=== PATIENT | female | born 1960 | race American Indian/Alaskan Native ===

== ENCOUNTER 2017-10-11 03:26 | Emergency (ER) | payer MEDICARE, BC ==
[2017-10-11 03:26] VITALS: BMI 28.6
[2017-10-11] MEDS ORDERED: Sodium Chloride 0.9% 1,000 ML IV STA (03:51)
--- NOTE | 2017-10-11 03:58 | ED PDOC ---
Arrival/HPI - General Chief Complaint: Abdominal Pain Time Seen by Provider: 10/11/17 03:34 Historian: Patient - History of Present Illness Narrative History of Present Illness (Text): 10/11/17 03:55 Raquel Rosario is a 57 year old female, whose past medical history includes colitis, who presents to the emergency department complaining of abdominal pain. Patient states she has been experiencing intermittent diffuse abdominal cramping for the past 6 days with associated nausea, vomiting, and diarrhea. Patient also reports bloody diarrhea for the past few days. Patient states symptoms are consistent with previous episodes of colitis. Patient denies any fever, chills, chest pain, shortness of breath, urinary symptoms, back pain, neck pain, headache, dizziness, or any other complaints. Time/Duration: < week (6 days ) Symptom Onset: Gradual Symptom Course: Unchanged Activities at Onset: Light Context: Home Past Medical History - Provider Review Nursing Documentation Reviewed: Yes - Cardiac Hx Cardiac Disorders: No - Pulmonary Hx Respiratory Disorders: No - Neurological Hx Neurological Disorder: Yes Hx Meningitis: Yes (bacterial) - HEENT Hx HEENT Disorder: No - Renal Hx Renal Disorder: No - Endocrine/Metabolic Hx Endocrine Disorders: No - Hematological/Oncological Hx Blood Disorders: No - Integumentary Hx Dermatological Disorder: No - Musculoskeletal/Rheumatological Hx Musculoskeletal Disorders: No - Gastrointestinal Hx Gastrointestinal Disorders: Yes Hx Colitis: Yes - Genitourinary/Gynecological Hx Genitourinary Disorders: No - Psychiatric Hx Psychophysiologic Disorder: Yes Hx Bipolar Disorder: Yes Hx Substance Use: No - Surgical History Hx Cholecystectomy: Yes - Anesthesia Hx Anesthesia: No Family/Social History - Physician Review Nursing Documentation Reviewed: Yes Family/Social History: Unknown Family HX Smoking Status: Never Smoked Hx Alcohol Use: No Hx Substance Use: No Allergies/Home Meds Allergies/Adverse Reactions: Allergies Iodinated Contrast- Oral and IV Dye Allergy (Verified 10/11/17 03:51) SWELLING Review of Systems - Physician Review All systems were reviewed & negative as marked: Yes - Review of Systems Constitutional: Normal. absent: Fevers Eyes: Normal ENT: Normal Respiratory: Normal. absent: SOB, Cough Cardiovascular: Normal. absent: Chest Pain Gastrointestinal: Abdominal Pain, Diarrhea, Nausea, Vomiting Genitourinary Female: Normal. absent: Dysuria, Frequency, Hematuria, Urine Output Changes Musculoskeletal: Normal. absent: Back Pain, Neck Pain Skin: Normal. absent: Rash Neurological: Normal. absent: Headache, Dizziness Endocrine: Normal Hemo/Lymphatic: Normal Psychiatric: Normal Physical Exam Vital Signs Reviewed: Yes Vital Signs Temp Pulse Resp BP Pulse Ox 10/11/17 06:39 72 17 132/71 100 10/11/17 03:45 97.9 F 76 16 141/78 100 Temperature: Afebrile Blood Pressure: Normal Pulse: Regular Respiratory Rate: Normal Appearance: Positive for: Well-Appearing, Non-Toxic, Comfortable Pain Distress: None Mental Status: Positive for: Alert and Oriented X 3 - Systems Exam Head: Present: Atraumatic, Normocephalic Pupils: Present: PERRL Extroacular Muscles: Present: EOMI Conjunctiva: Present: Normal Mouth: Present: Moist Mucous Membranes Neck: Present: Normal Range of Motion Respiratory/Chest: Present: Clear to Auscultation, Good Air Exchange. No: Respiratory Distress, Accessory Muscle Use Cardiovascular: Present: Regular Rate and Rhythm, Normal S1, S2. No: Murmurs Abdomen: Present: Normal Bowel Sounds. No: Tenderness, Distention, Peritoneal Signs Back: Present: Normal Inspection. No: CVA Tenderness, Midline Tenderness, Paraspinal Tenderness Upper Extremity: Present: Normal Inspection. No: Cyanosis, Edema Lower Extremity: Present: Normal Inspection. No: Edema Neurological: Present: GCS=15, CN II-XII Intact, Speech Normal Skin: Present: Warm, Dry, Normal Color. No: Rashes Psychiatric: Present: Alert, Oriented x 3, Normal Insight, Normal Concentration Medical Decision Making ED Course and Treatment: 10/11/17 03:55 Impression: 57 year old female complaining of intermittent diffuse abdominal cramping, nausea, vomiting, and diarrhea x6 days. Plan: -- Labs, lipase -- IV fluids -- Protonix -- Reassess and disposition Progress Notes: - Lab Interpretations Lab Results: 10/11/17 04:06 10/11/17 04:06 Lab Results 10/11/17 04:06: WBC 6.0 D, RBC 4.76, Hgb 13.7, Hct 41.3, MCV 86.8, MCH 28.8, MCHC 33.2, RDW 13.4, Plt Count 361, MPV 8.8 10/11/17 04:06: Sodium 142, Potassium 3.7, Chloride 104, Carbon Dioxide 24, Anion Gap 18, BUN 14, Creatinine 0.8, Est GFR ( Amer) > 60, Est GFR (Non- Af Amer) > 60, Random Glucose 116 H, Calcium 9.1, Total Bilirubin 0.6, AST 35, ALT 29, Alkaline Phosphatase 87, Total Protein 7.6, Albumin 4.3, Globulin 3.3, Albumin/Globulin Ratio 1.3, Lipase 107 - RAD Interpretation Radiology Orders: 10/11/17 04:47 ABD & PELVIS W/O PO OR IV CONT [CT] Stat - Medication Orders Current Medication Orders: Discontinued Medications Ciprofloxacin (Cipro) 500 mg PO ONCE STA PRN Reason: Protocol Stop: 10/11/17 07:01 Sodium Chloride (Sodium Chloride 0.9%) 1,000 mls @ 999 mls/hr IV .Q1H1M STA Stop: 10/11/17 04:51 Last Admin: 10/11/17 04:11 Dose: 999 mls/hr eMAR Start Stop Document 10/11/17 04:11 IT (Rec: 10/11/17 04:11 IT [id number]) Intravenous Solution Start Date 10/11/17 Start Time 04:11 Metronidazole (Flagyl) 500 mg PO STAT STA PRN Reason: Protocol Stop: 10/11/17 07:01 Morphine Sulfate (Morphine) 2 mg IVP STAT STA Stop: 10/11/17 04:44 Last Admin: 10/11/17 05:09 Dose: 2 mg IVP Administration Document 10/11/17 05:09 IT (Rec: 10/11/17 05:09 IT [id number]) Charges for Administration # of IVP Administrations 1 Ondansetron HCl (Zofran Inj) 4 mg IVP ONCE ONE Stop: 10/11/17 04:44 Last Admin: 10/11/17 05:09 Dose: 4 mg IVP Administration Document 10/11/17 05:09 IT (Rec: 10/11/17 05:09 IT [id number]) Charges for Administration # of IVP Administrations 1 Pantoprazole Sodium (Protonix Inj) 40 mg IVP ONCE STA Stop: 10/11/17 03:57 Last Admin: 10/11/17 04:11 Dose: 40 mg IVP Administration Document 10/11/17 04:11 IT (Rec: 10/11/17 04:11 IT [id number]) Charges for Administration # of IVP Administrations 1 - Scribe Statement The provider has reviewed the documentation as recorded by the Zaheer Pérez Provider Zaheer Attestation: All medical record entries made by the Scribe were at my direction and personally dictated by me. I have reviewed the chart and agree that the record accurately reflects my personal performance of the history, physical exam, medical decision making, and the department course for this patient. I have also personally directed, reviewed, and agree with the discharge instructions and disposition. Disposition/Present on Arrival - Present on Arrival Any Indicators Present on Arrival: No History of DVT/PE: No History of Uncontrolled Diabetes: No Urinary Catheter: No History of Decub. Ulcer: No History Surgical Site Infection Following: None - Disposition Have Diagnosis and Disposition been Completed?: Yes Diagnosis: Colitis Disposition: HOME/ ROUTINE Disposition Time: 07:05 Patient Plan: Discharge Patient Problems: Current Active Problems Problem Status Onset Colitis Acute Condition: GOOD Additional Instructions: Liquid/bland diet next few days/take meds as prescribed/follow up with your doctor this week/any worsening symptoms return to the emergency room Prescriptions: Dicyclomine [Dicyclomine HCl] 10 mg PO QID PRN #16 cap PRN Reason: Gi Distress Ciprofloxacin [Cipro] 500 mg PO BID #14 tab Metronidazole 500 mg PO TID #21 tablet Forms: [employer] (Malagasy)
[2017-10-11 04:25] LABS: ALB/GLOB RATIO 1.3 (1.1-1.8); ALBUMIN 4.3 g/dL (3.0-4.8); CALCIUM 9.1 mg/dL (8.4-10.5); GFR AFRICAN-AMERICAN > 60; GFR NON-AFRICAN AMERICAN > 60; LIPASE 107 U/L (23-300)
[2017-10-11 04:30] LABS: ALT/SGPT 29 U/L (7-56); AST/SGOT 35 U/L (14-36); BLOOD UREA NITROGEN 14 mg/dL (7-21)
[2017-10-11 04:37] LABS: HEMOGLOBIN 13.7 g/dL (12.0-16.0); MEAN CELL VOLUME 86.8 fl (80.0-105.0); MEAN CORPUSCULAR HEMOGLOBIN 28.8 pg (25.0-35.0); MEAN CORPUSCULAR HGB CONC 33.2 g/dl (31.0-37.0); MEAN PLATELET VOLUME 8.8 fl (7.0-11.0); RBC 4.76 10^6/uL (3.5-6.1); RED CELL DISTRIBUTION WIDTH 13.4 % (11.5-14.5)
[2017-10-11] MEDS ORDERED: Morphine 2 mg/2 mL syringe IVP STA (04:43)
[2017-10-11 06:40] VITALS: BP 132/71
[2017-10-11 07:28] VITALS: PULSE 79; RESP 19; TEMP 98; O2SAT 98
--- NOTE | 2017-10-11 09:40 | CT ---
PROCEDURE: CT Abdomen and Pelvis without intravenous contrast HISTORY: pain COMPARISON: None. TECHNIQUE: Without contrast.. Contrast dose: Radiation dose: Total exam DLP = 1070 mGy-cm. This CT exam was performed using one or more of the following dose reduction techniques: Automated exposure control, adjustment of the mA and/or kV according to patient size, and/or use of iterative reconstruction technique. FINDINGS: LOWER THORAX: Unremarkable. LIVER: There is a 2.5 cm hypodense lesion in the dome of the liver measuring 39 Hounsfield units in density. GALLBLADDER AND BILE DUCTS: Gallbladder removed PANCREAS: Unremarkable. No gross lesion or ductal dilatation. SPLEEN: Unremarkable. ADRENALS: Unremarkable. No mass. KIDNEYS AND URETERS: Unremarkable. No hydronephrosis. No solid mass. VASCULATURE: Unremarkable. No aortic aneurysm. BOWEL: There is mural thickening in the descending colon consistent with colitis. APPENDIX: Unremarkable. Normal appendix. PERITONEUM: Unremarkable. No free fluid. No free air. LYMPH NODES: Unremarkable. No enlarged lymph nodes. BLADDER: Unremarkable. REPRODUCTIVE: There is a retroflexed uterus. BONES: No acute fracture. OTHER FINDINGS: None. IMPRESSION: Mural thickening in the descending colon consistent with colitis. Nonspecific hypodense lesion in the dome of the liver. Ultrasound or post-contrast follow-up recommended
== END 2017-10-11 07:28 | disposition home or self-care (01) ==
LOC: ED 03:26
DX: K52.9 Noninfective gastroenteritis and colitis, unspecified (principal)
CPT/HCPCS: 74176; 80053; 83690; 85027; 96374; 96375; 99283; C9113; J2270; J2405; J7030